=== PATIENT | female | born 1935 | race Caucasian/White ===

== ENCOUNTER 2017-02-01 21:26 | Emergency (ER) | payer MEDICARE, OTHER ==
[~2017-02-01] VITALS: Ht 165.1 cm; Wt 57.2 kg
[2017-02-01 21:32] VITALS: BP 142/68
== END 2017-02-01 21:58 | disposition home or self-care (01) ==
LOC: ER 21:27
DX: B02.9 Zoster without complications (principal); I10 Essential (primary) hypertension; E11.9 Type 2 diabetes mellitus without complications; D64.9 Anemia, unspecified
CPT/HCPCS: Z7610

== ENCOUNTER 2017-05-27 06:30 | Emergency (ER) | payer MEDICARE, BC ==
[~2017-05-27] VITALS: Ht 167.6 cm; Wt 63.5 kg
--- NOTE | 2017-05-27 06:30 | NUR ---
TO BED 9 AMBULATORY C/O FLU LIKE SYMPTOM X3 DAYS. PT AAOX4 NO ACUTE DISTRESS NOTED, RESP EVEN AND UNLABORED. PENDING ER MD ECKERT.
[2017-05-27] MEDS ORDERED: methylPREDNISolone SOD SUCC 125 MG/2ML VIAL IM STA (06:44)
[2017-05-27] MEDS ORDERED: IPRATROPIUM NEB FS 0.5 MG/2.5 ML AMPUL.NEB NEB ONE ×2 (07:00→08:30)
[2017-05-27] MEDS ORDERED: ALBUTEROL FS 2.5 MG/3 ML VIAL.NEB NEB ONE ×2 (07:00→08:30)
[2017-05-27] MEDS ORDERED: ALBUTEROL FS 2.5 MG/3 ML VIAL.NEB ONE ×2 (07:13→08:32)
[2017-05-27] MEDS ORDERED: IPRATROPIUM NEB FS 0.5 MG/2.5 ML AMPUL.NEB ONE ×2 (07:13→08:32)
--- NOTE | 2017-05-27 07:20 | NUR ---
RT AT BS FOR BREATHING TX.
[2017-05-27] MEDS ORDERED: predniSONE 20 MG TABLET PO STA (07:24)
[2017-05-27] MEDS ORDERED: predniSONE 20 MG TABLET ONE (07:29)
[2017-05-27 07:32] LABS: BASOPHILS % (AUTO) 0.4 % (0.0-2.0); EOSINOPHILS % (AUTO) 2.6 % (0.0-6.0); HEMATOCRIT 34 % (33-45); HEMOGLOBIN 11.4 g/dL (11.5-14.8); LYMPHOCYTES # (AUTO) 1.3 /CMM (0.8-4.8); LYMPHOCYTES % (AUTO) 29.7 % (20.0-44.0); MEAN CORPUSCULAR HGB CONC 34 g/dl (31.0-36.0); MEAN CORPUSCULAR VOLUME 81 fL (82-100); MONOCYTES # (AUTO) 0.4 /CMM (0.1-1.30); MONOCYTES % (AUTO) 8.3 % (2.0-12.0); NEUTROPHILS # (AUTO) 2.6 /CMM (1.8-8.9); PLATELET COUNT (AUTO) 158 /CMM (150-450); RDW COEFFICIENT OF VARIATION 15.1 (11.5-15.0); RED BLOOD CELL COUNT(AUTO) 4.14 MIL/uL (4.0-5.2); WHITE BLOOD COUNT (AUTO) 4.4 K/uL (4.3-11.0)
[2017-05-27 07:42] LABS: CARBON DIOXIDE 24 mmol/L (21-32); CHLORIDE 101 mmol/L (98-107); GLUCOSE 138 mg/dL (74-106); POTASSIUM 3.8 mmol/L (3.5-5.1); SODIUM SERUM 135 mmol/L (136-145); UREA NITROGEN, BLOOD 15 mg/dL (7-18)
[2017-05-27 07:46] LABS: CALCIUM, SERUM 8.6 mg/dL (8.5-10.1); CREATININE 0.9 mg/dL (0.6-1.3)
--- NOTE | 2017-05-27 08:05 | NUR ---
CALLED RT FOR SECOND BREATHING TX.
--- NOTE | 2017-05-27 09:21 | NUR ---
Patient discharged to home in stable condition. Written and verbal after care instructions given. Patient verbalizes understanding of instruction.
[2017-05-27 09:24] VITALS: BP 128/71
[2017-05-31] MEDS ORDERED: METH4TAB17 PO (11:43)
== END 2017-05-27 09:25 | disposition home or self-care (01) ==
LOC: ER 06:31
DX: J45.909 Unspecified asthma, uncomplicated (principal); B34.9 Viral infection, unspecified; D64.9 Anemia, unspecified; E11.9 Type 2 diabetes mellitus without complications; I10 Essential (primary) hypertension; K50.90 Crohn's disease, unspecified, without complications; M48.061 Spinal stenosis, lumbar region without neurogenic claudication
CPT/HCPCS: 36415; 71045-TC; 80048-TC; 83880; 85025-TC; A4606; J2930; Z7610

== ENCOUNTER 2017-05-29 07:34 | Inpatient (IN) | payer MEDICARE, BC ==
[~2017-05-29] VITALS: Ht 165.1 cm; Wt 59.0 kg
--- NOTE | 2017-05-29 07:47 | NUR ---
Cough, congestion, and wheezing x 2 days, unrelieved with HHN and prednisone. Placed on monitor. awaiiting md order.
[2017-05-29] MEDS ORDERED: Magnesium 1GM/D5W 100ML PREMIX 200 ML IV ONE (07:58)
[2017-05-29] MEDS ORDERED: IV NS 0.9% 1,000 ML IV ONE (07:58)
[2017-05-29] MEDS ORDERED: ALBUTEROL FS 2.5 MG/3 ML VIAL.NEB NEB ONE (08:00)
[2017-05-29] MEDS ORDERED: IPRATROPIUM NEB FS 0.5 MG/2.5 ML AMPUL.NEB NEB ONE (08:00)
[2017-05-29] MEDS ORDERED: predniSONE 20 MG TABLET PO ONE (08:00)
[2017-05-29] MEDS ORDERED: Magnesium 1GM/D5W 100ML PREMIX 100 ML IV ONE ×2 (08:13→09:15)
[2017-05-29] MEDS ORDERED: predniSONE 20 MG TABLET ONE ×2 (08:13→08:19)
[2017-05-29] MEDS ORDERED: IPRATROPIUM NEB FS 0.5 MG/2.5 ML AMPUL.NEB ONE (08:14)
[2017-05-29] MEDS ORDERED: ALBUTEROL FS 2.5 MG/3 ML VIAL.NEB ONE (08:14)
[2017-05-29 08:41] LABS: BASOPHILS % (AUTO) 0.3 % (0.0-2.0); HEMATOCRIT 36 % (33-45); LYMPHOCYTES # (AUTO) 1.7 /CMM (0.8-4.8); LYMPHOCYTES % (AUTO) 23.5 % (20.0-44.0); MEAN CORPUSCULAR HGB CONC 34 g/dl (31.0-36.0); MEAN CORPUSCULAR VOLUME 81 fL (82-100); MONOCYTES # (AUTO) 0.4 /CMM (0.1-1.30); MONOCYTES % (AUTO) 5.9 % (2.0-12.0); NEUTROPHILS # (AUTO) 4.8 /CMM (1.8-8.9); NEUTROPHILS % (AUTO) 69.3 % (43.0-81.0); PLATELET COUNT (AUTO) 218 /CMM (150-450); RDW COEFFICIENT OF VARIATION 14.6 (11.5-15.0); RED BLOOD CELL COUNT(AUTO) 4.44 MIL/uL (4.0-5.2)
[2017-05-29 08:48] LABS: CALCIUM, SERUM 9.2 mg/dL (8.5-10.1); CARBON DIOXIDE 28 mmol/L (21-32); CHLORIDE 100 mmol/L (98-107); CREATININE 0.8 mg/dL (0.6-1.3); GLUCOSE 89 mg/dL (74-106); POTASSIUM 3.9 mmol/L (3.5-5.1); SODIUM SERUM 137 mmol/L (136-145); UREA NITROGEN, BLOOD 20 mg/dL (7-18)
[2017-05-29 08:56] LABS: TROPONIN I 0.048 ng/mL (0.00-0.056)
[2017-05-29 08:58] LABS: ALANINE AMINOTRANSFERASE 33 U/L (12-78); ALBUMIN 3.5 g/dL (3.4-5.0); ALKALINE PHOSPHATASE 72 U/L (46-116); ASPARTATE AMINOTRANSFERASE 36 U/L (15-37); BILIRUBIN,DIRECT 0.2 mg/dL (0.0-0.2); BILIRUBIN,TOTAL 0.4 mg/dL (0.2-1.0); TOTAL PROTEIN, SERUM 7.3 g/dL (6.4-8.2)
--- NOTE | 2017-05-29 09:13 | NUR ---
Paged Dr. Lomeli for admission. Office staff states [facility] will be covering today.
--- NOTE | 2017-05-29 09:14 | NUR ---
Paged Dr Siddiqui for admission
[2017-05-29] MEDS ORDERED: ASPI-1169 PO (09:26)
[2017-05-29] MEDS ORDERED: LOSA50TA21 PO (09:26)
[2017-05-29] MEDS ORDERED: SIMV20TA6 PO (09:26)
[2017-05-29] MEDS ORDERED: ALPR0.255 PO (09:26)
[2017-05-29] MEDS ORDERED: ALBU18HF2 IH (09:26)
[2017-05-29] MEDS ORDERED: FAMO20TA8 PO (09:26)
[2017-05-29] MEDS ORDERED: CITA20TA19 PO (09:27)
--- NOTE | 2017-05-29 10:35 | NUR ---
TELE/RN OPENING NOTE PATIENT IS RECEIVED ON A GURNEY. ASSISTED TO BED. PATIENT ALERT AND ORIENTED X4. DENIES SOB AT THIS TIME. RESPIRATION REGULAR AND UNLABORED. OXYGEN SATURATION IN ROOM AIR AT 98%. PATIENT NOTED WITH NON-PRODUCTIVE COUGH. AFEBRILE. HOB ELEVATED TO GOOD LUNG EXPANSION. LAC G 18 PATENT AND SALINE LOCKED. PATIENT REFUSED SKIN ASSESSMENT AT THIS TIME. WILL CONTINUE TO EDUCATE AND ENCOURAGE TO AGREE FOR SKIN ASSESSMENT. BED LOW AND LOCKED. SIDE RAILS UP X2. CALL LIGHT WITHIN REACH. WILL CONTINUE TO MONITOR.
--- NOTE | 2017-05-29 10:40 | NUR ---
GAVE REPORT TO FREIDA SHELTON DX REACTIVE AIRWAY DR AGUAYO ADMITTING
[2017-05-29 10:45] VITALS: BP 146/79
--- NOTE | 2017-05-29 12:06 | NUR ---
TELE/RN NOTE PATIENT AGREED FOR SKIN ASSESSMENT AND SKIN ASSESSMENT FLOWSHEET IS UPDATED
[2017-05-29] MEDS ORDERED: Z GUARD REMEDY 2 OZ OINT TP PRN (12:30)
[2017-05-29] MEDS ORDERED: ACETAMINOPHEN 325 MG TABLET PO PRN (12:30)
[2017-05-29] MEDS ORDERED: MAGNESIUM HYDROXIDE 30 ML UDC PO PRN (12:30)
[2017-05-29] MEDS ORDERED: ALBUTEROL FS 2.5 MG/3 ML VIAL.NEB NEB PRN (12:30)
[2017-05-29] MEDS ORDERED: ZOLPIDEM TARTRATE 5 MG TABLET PO PRN (12:30)
[2017-05-29] MEDS ORDERED: HYDROCODONE/APAP 5/325MG 1 EACH TABLET PO PRN (12:30)
[2017-05-29] MEDS ORDERED: ONDANSETRON HCL/PF 4 MG/2 ML VIAL IVP PRN (12:30)
[2017-05-29] MEDS ORDERED: MAG HYDROX/AL HYDROX/SIMETH 30 ML UDC PO PRN (12:30)
[2017-05-29] MEDS: methylPREDNISolone SOD SUCC 40 MG/ML VIAL IV SCH ×2 (12:45→16:44)
[2017-05-29] MEDS: ALPRAZOLAM 0.25 MG TABLET PO PRN ×2 (14:14→23:19)
[2017-05-29] MEDS: ALBUTEROL FS 2.5 MG/3 ML VIAL.NEB NEB SCH ×2 (14:29→20:58)
[2017-05-29] MEDS: IV NS 0.9% 1,000 ML IV PRN (15:38)
--- NOTE | 2017-05-29 16:15 | NUR ---
TELE/RN NOTE RECEIVED TEL NEW ORDERS FROM DR AGUAYO. ALL ORDERS VERIFIED. NOTED AND CARRIED OUT.
[2017-05-29] MEDS ORDERED: LOSARTAN POTASSIUM 50 MG TABLET PO ONE (16:30)
[2017-05-29] MEDS ORDERED: LORATADINE 10 MG TABLET PO PRN (16:30)
[2017-05-29] MEDS: SIMVASTATIN 20 MG TABLET PO SCH (17:45)
--- NOTE | 2017-05-29 18:17 | NUR ---
TELE/RN CLOSING NOTE PATIENT ALERT AND ORIENTED X4. DENIES SOB, DENIES PAIN AT THIS TIME. RESPIRATION REGULAR AND UNLABORED. PATIENT IN NO APPARENT DISTRESS. OXYGEN SATURATION IN ROOM AIR AT 98%. PATIENT ON MONITORING AND READING SR AT 84. LAC G 18 PATENT AND IVF INFUSING WITH NO S/S INFILTRATION. BED LOW AND LOCKED. SIDE RAILS UP X2. VERBAL CUES PROVIDED TO KEEP SAFETY AWARENESS HIGH. CALL LIGHT WITHIN REACH.WILL ENDORSE TO TUMBLING MACHINE OPERATOR.
--- NOTE | 2017-05-29 19:30 | NUR ---
TELE/RN RECEIVE PATIENT AWAKE, ALERT, ORIENTED, COMFORTABLE, NO C/O PAIN, NO DISTRESS NOTED, CALL LIGHT IN REACH. WILL MONITOR.
[2017-05-29 20:00] VITALS: BP 134/73
--- NOTE | 2017-05-29 23:21 | NUR ---
TELE/RN PER PATIENT SHE IS UNABLE TO SLEEP DESPITE THE AMBIEN AND IS FEELING ANXIOUS, XANAX 0.25 MG PO WAS GIVEN ORDERED. WILL CONTINUE TO MONITOR.
[2017-05-30] VITALS: BP 141/82
--- NOTE | 2017-05-30 00:41 | NUR ---
TELE/RN PATIENT IS SLEEPING AT THIS TIME, APPEAR COMFORTABLE, BREATHING EVEN AND UNLABORED, CALL LIGHT IN REACH, WILL CONTINUE TO MONITOR.
[2017-05-30] MEDS: ALBUTEROL FS 2.5 MG/3 ML VIAL.NEB NEB SCH ×4 (01:25→19:24)
--- NOTE | 2017-05-30 01:30 | NUR ---
TELE/RN PATIENT IS UPSET THAT SHE WAS AWAKENED FOR BREATHING TREATMENT AND REQUESTS NOT TO BE AWAKENED WHEN SLEEPING. INFORMED RT.
--- NOTE | 2017-05-30 03:10 | NUR ---
TELE/RN PER LUIS ANTONIO MICHELE, PATIENT REQUESTS NOT TO BE AWAKENED WHEN SLEEPING.
--- NOTE | 2017-05-30 06:05 | NUR ---
TELE/RN PATIENT IS SLEEPING AT THIS TIME, AROUSABLE, BREATHING EVEN AND UNLABORED, ALL NEEDS ATTENDED AT THIS TIME, WILL CONTINUE TO MONITOR.
[2017-05-30 06:33] LABS: HEMATOCRIT 32 % (33-45); LYMPHOCYTES # (AUTO) 0.7 /CMM (0.8-4.8); LYMPHOCYTES % (AUTO) 6.8 % (20.0-44.0); MEAN CORPUSCULAR HGB CONC 34 g/dl (31.0-36.0); MEAN CORPUSCULAR VOLUME 81 fL (82-100); MONOCYTES # (AUTO) 0.6 /CMM (0.1-1.30); MONOCYTES % (AUTO) 5.4 % (2.0-12.0); NEUTROPHILS # (AUTO) 9.3 /CMM (1.8-8.9); NEUTROPHILS % (AUTO) 87.8 % (43.0-81.0); PLATELET COUNT (AUTO) 211 /CMM (150-450); RDW COEFFICIENT OF VARIATION 15.2 (11.5-15.0); RED BLOOD CELL COUNT(AUTO) 3.96 MIL/uL (4.0-5.2); WHITE BLOOD COUNT (AUTO) 10.6 K/uL (4.3-11.0)
[2017-05-30 06:51] LABS: CALCIUM, SERUM 8.7 mg/dL (8.5-10.1); CARBON DIOXIDE 28 mmol/L (21-32); CHLORIDE 103 mmol/L (98-107); GLUCOSE 204 mg/dL (74-106); MAGNESIUM 1.9 mg/dL (1.8-2.4); PHOSPHORUS 2.7 mg/dL (2.5-4.9); POTASSIUM 3.9 mmol/L (3.5-5.1); SODIUM SERUM 137 mmol/L (136-145); UREA NITROGEN, BLOOD 17 mg/dL (7-18)
[2017-05-30 08:06] VITALS: BP 151/81
[2017-05-30] MEDS: FAMOTIDINE (20 MG) 20 MG TABLET PO SCH (08:26)
[2017-05-30] MEDS: ASPIRIN 81 MG TAB.CHEW PO SCH (08:26)
[2017-05-30] MEDS: LOSARTAN POTASSIUM 50 MG TABLET PO SCH (08:27)
[2017-05-30] MEDS: CITALOPRAM HYDROBROMIDE 20 MG TABLET PO SCH (08:27)
[2017-05-30] MEDS: methylPREDNISolone SOD SUCC 40 MG/ML VIAL IV SCH ×3 (08:28→17:31)
[2017-05-30 09:01] LABS: ABG BASE EXCESS -0.8 mmol/L; ABG OXYGEN SATURATION 95.9 % (92.0-98.5); ABG PCO2 29.6 mmHg (35.0-45.0); ABG PH 7.485 (7.350-7.450); AaDO2 31.3 mmHg; MetHb 0.3 % (0.0-1.5); O2Hb 95.6 % (94.0-97.0); SITE, ABG Right Radial; VENT MODE, BG RA
[2017-05-30] MEDS: ALPRAZOLAM 0.25 MG TABLET PO PRN (12:18)
--- NOTE | 2017-05-30 12:25 | NUR ---
RN NOTES: PATIENT STATES BEING ANXIOUS. ENCOURAGED TO EXPRESS EMOTIONS. NONLABORED BREATHING ON ROOM AIR. XANAX GIVEN PER ORDERS
[2017-05-30] MEDS: IV NS 0.9% 1,000 ML IV PRN (13:14)
--- NOTE | 2017-05-30 13:25 | NUR ---
RN NOTES: PATIENT STATES "FEELING BETTER." AFTER XANAX NONLABORED BREATHING NOTED ON ROOM AIR. NO FACIAL GRIMACING
--- NOTE | 2017-05-30 14:24 | NUR ---
RN NOTES: PATIENT STATES HAVING A HEADACHE , STATING " ONLY TYLENOL WILL HELP ME" PATIENT PERRLA. TYLENOL ADMINISTERED PER ORDERS
--- NOTE | 2017-05-30 14:30 | NUR ---
RN NOTES: PER DR AGUAYO, XANAX 1 MG AT BEDTIME
--- NOTE | 2017-05-30 15:24 | NUR ---
RN NOTES: PATIENT STATES THAT HEADACHE IS ALLEVIATED AFTER TYLENOL ADMINISTRATION
--- NOTE | 2017-05-30 16:20 | NUR ---
RN NOTES: PATIENT COMPLAINING OF CONSTIPATION. MILK OF MAGNESIA ADMINISTERED PER ORDERS
--- NOTE | 2017-05-30 16:27 | NUR ---
RN NOTES: PATIENT COMPLAINING OF BURNING UPON URINATION. URINE COLLECTED AND TO BE PICKED UP BY LAB
[2017-05-30 16:44] VITALS: BP 134/74
[2017-05-30 17:24] LABS: APPEARANCE,URINE CLEAR (CLEAR); BILIRUBIN,URINE NEGATIVE (NEGATIVE); BLOOD, URINE TRACE-INTA Ery/uL (NEGATIVE); COLOR,URINE YELLOW (YELLOW); KETONES,URINE NEGATIVE (NEGATIVE); LEUKOCYTE ESTERASE ,URINE NEGATIVE (NEGATIVE); NITRITE, URINE NEGATIVE (NEGATIVE); PROTEIN,URINE 2+ mg/dl (NEGATIVE); UGLUCOSE TRACE mg/dL (NEGATIVE); UROBILINOGEN,URINE 0.2 EU/dL (0.2)
[2017-05-30] MEDS: SIMVASTATIN 20 MG TABLET PO SCH (17:30)
--- NOTE | 2017-05-30 17:36 | NUR ---
RN NOTES: PER DR AGUAYO, MILD SLIDING SCALE. AWARE THAT PATIENT IS REFUSING INSULIN. BENEFITS AND RISKS EXPLAINED TO PATIENT
[2017-05-30] MEDS ORDERED: DEXTROSE 50%-WATER 50 ML DISP.SYRIN IV PRN (18:00)
[2017-05-30] MEDS ORDERED: INSULIN REGULAR, HUMAN 100 UNIT/ML 3 ML VIAL SQ PRN (18:00)
[2017-05-30 19:05] LABS: BACTERIA,URINE None seen /HPF (None Seen); RBC,URINE 0-2 /HPF (0-2); SQUAMOUS EPITHELIAL CELL,UR Few /HPF (None Seen); WBC,URINE 0-2 /HPF (0-3)
--- NOTE | 2017-05-30 19:30 | NUR ---
RN NOTES RECEIVED PATIENT IN BED AWAKE, AO X 3, ABLE TO MAKE NEEDS KNOWN. NO ACUTE DISTRESS NOTED. DENIES ANY PAIN AT THIS TIME. IV SITE PATENT, INTACT; IVF INFUSING ORDERED. NO SYMPTOMS OF HYPER/HYPOGLYCEMIA. SAFETY REMINDERS GIVEN. ON LOW BED WITH BILATERAL UPPER SIDE RAILS UP. CALL JARQUIN WITHIN EASY REACH. WILL CONTINUE TO MONITOR.
--- NOTE | 2017-05-30 19:41 | NUR ---
RN NOTES: PATIENT RESTING IN BED. PATIENT AOX4. NONLABORED BREATHING NOTED ON ROOM AIR. NO SIGNS OF DISTRESS NOTED. DENYING PAIN AT THE MOMENT. IV SITE PATENT AND INTACT ON LEFT AC. IV FLUIDS RUNNING PER ORDERS. BED IN LOWEST LOCKED POSITION. CALL LIGHT WITHIN REACH. EDUCATED ON INSULIN, AND BLOOD SUGAR MONITORING. ENDORSED TO NEXT SHIFT
[2017-05-30 20:00] VITALS: BP 137/69
[2017-05-30] MEDS: BLOOD SUGAR DIAGNOSTIC 1 EACH STRIP IN SCH (21:21)
[2017-05-30] MEDS ORDERED: ALPRAZOLAM 1 MG TABLET PO SCH (22:00)
[2017-05-31] MEDS: ALBUTEROL FS 2.5 MG/3 ML VIAL.NEB NEB SCH ×3 (01:30→12:42)
--- NOTE | 2017-05-31 06:30 | NUR ---
RN NOTES PATIENT ASLEEP, EASILY AROUSABLE. RESPIRATIONS EVEN. NO SIGNS OF PAIN NOTED. DUE MEDS GIVEN WITH NO ASE NOTED. NEEDS ATTENDED. SAFETY PRECAUTIONS AND COMFORT MEASURES IN PLACE. WILL GIVE REPORT TO DAY SHIFT FOR CONTINUITY OF CARE.
--- NOTE | 2017-05-31 07:10 | NUR ---
RN INITIAL NOTES: PATIENT RESTING IN BED. PATIENT AOX4. NONLABORED BREATHING NOTED ON ROOM AIR. NO SIGNS OF DISTRESS NOTED. DENYING PAIN AT THE MOMENT. IV SITE PATENT AND INTACT ON RIGHT ARM, GAUGE #[id number]. BED IN LOWEST LOCKED POSITION. CALL LIGHT WITHIN REACH. WILL CONTINUE TO MONITOR
[2017-05-31] MEDS: BLOOD SUGAR DIAGNOSTIC 1 EACH STRIP IN SCH ×2 (07:12→12:27)
[2017-05-31 08:00] VITALS: BP 154/85
[2017-05-31] MEDS: CITALOPRAM HYDROBROMIDE 20 MG TABLET PO SCH (08:20)
[2017-05-31 08:21] VITALS: BP 154/85
[2017-05-31] MEDS: FAMOTIDINE (20 MG) 20 MG TABLET PO SCH (08:21)
[2017-05-31] MEDS: LOSARTAN POTASSIUM 50 MG TABLET PO SCH (08:21)
[2017-05-31] MEDS: ASPIRIN 81 MG TAB.CHEW PO SCH (08:21)
[2017-05-31] MEDS: methylPREDNISolone SOD SUCC 40 MG/ML VIAL IV SCH ×2 (08:22→12:25)
[2017-05-31] MEDS ORDERED: METH4TAB17 PO (11:43)
--- NOTE | 2017-05-31 13:00 | NUR ---
RN NOTES: PATIENT DISCHARGED HOME PER DR AGUAYO'S ORDERS. PATIENT AOX4. NONLABORED BREATHING NOTED ON ROOM AIR AND DENYING SOB. PATIENT STABLE DURING SHIFT. IV LINE REMOVED BEFORE DISCHARGE. NO SKIN CHANGES NOTED. REFUSED SKIN PIC. ALL VALUABLES GIVEN TO PATIENT. PATIENT EDUCATED ABOUT EXISTCARE AND MEDICATIONS. PRESCRIPTION GIVEN TO PATIENT. PATIENT LEFT WITH DAUGHTER STABLE. ACCOMPANIED TO CAR BY STAFF
== END 2017-05-31 13:44 | disposition home or self-care (01) | DRG 202 ==
LOC: ER 07:36 → TELE 10:15 → MED 05-30 08:35
PROVIDERS: ADMIT Internal Medicine; ATTEND Internal Medicine
DX: J20.8 Acute bronchitis due to other specified organisms (principal); K50.90 Crohn's disease, unspecified, without complications; E11.9 Type 2 diabetes mellitus without complications; J45.909 Unspecified asthma, uncomplicated; I10 Essential (primary) hypertension; M48.061 Spinal stenosis, lumbar region without neurogenic claudication; K21.9 Gastro-esophageal reflux disease without esophagitis; E86.0 Dehydration; Z79.82 Long term (current) use of aspirin; Z79.899 Other long term (current) drug therapy; G43.909 Migraine, unspecified, not intractable, without status migrainosus; M19.90 Unspecified osteoarthritis, unspecified site; Z79.84 Long term (current) use of oral hypoglycemic drugs; Z87.891 Personal history of nicotine dependence; F41.9 Anxiety disorder, unspecified; E78.5 Hyperlipidemia, unspecified
CPT/HCPCS: 36415; 36600; 71045-TC; 80048-TC; 80076-TC; 81000-TC; 82962-TC; 83605-TC; 83735-TC; 83880; 84100-TC; 84484-TC; 85025-TC; 87040-TC; 87081-TC; 87086-TC; 87400; A4606; J1815; J2920; J3475; J7030; Z7610

== ENCOUNTER 2017-09-23 10:24 | Emergency (ER) | payer BC, MEDICARE ==
[~2017-09-23] VITALS: Ht 157.5 cm; Wt 58.7 kg
[~2017-09-23 10:24] MED LIST: ALBU18HF2 IH; ALPR0.255 PO; ASPI-1169 PO; CITA20TA19 PO; FAMO20TA8 PO; LOSA50TA21 PO; METH4TAB17 PO; SIMV20TA6 PO
--- NOTE | 2017-09-23 10:35 | NUR ---
PRESENTS TO ER C/O R LOWER BACK PAIN, RADIATING DOWN R LEG X 1 WEEK, UNCONTROLLED WITH NORCO. A/OX 4, BREATHING EVEN AND UNLABORED. NO SOB, NAD, VITALS STABLE. SAFETY AND COMFORT MEASURES IN PLACE. AWAITING MD ORDERS.
[2017-09-23] MEDS ORDERED: KETOROLAC TROMETHAMINE INJ 30 MG/ML VIAL ONE (10:45)
[2017-09-23] MEDS ORDERED: METHOCARBAMOL (500MG) 500 MG TABLET ONE (10:45)
--- NOTE | 2017-09-23 10:54 | NUR ---
medicated patient per md orders.
[2017-09-23] MEDS ORDERED: KETOROLAC TROMETHAMINE INJ 30 MG/ML VIAL IM ONE (11:00)
[2017-09-23] MEDS ORDERED: METHOCARBAMOL (500MG) 500 MG TABLET PO ONE (11:00)
[2017-09-23 11:19] VITALS: BP 146/72
--- NOTE | 2017-09-23 11:20 | NUR ---
Patient discharged to home in stable condition. Written and verbal after care instructions given. Patient verbalizes understanding of instruction.
== END 2017-09-23 11:20 | disposition home or self-care (01) ==
LOC: ER 10:34
DX: M54.41 Lumbago with sciatica, right side (principal); G89.29 Other chronic pain; I10 Essential (primary) hypertension; E11.9 Type 2 diabetes mellitus without complications; Z79.82 Long term (current) use of aspirin; F17.200 Nicotine dependence, unspecified, uncomplicated
CPT/HCPCS: A4606; J1885; Z7610

== ENCOUNTER 2017-10-01 01:47 | Emergency (ER) | payer BC ==
[~2017-10-01] VITALS: Ht 165.1 cm; Wt 58.1 kg
--- NOTE | 2017-10-01 02:10 | NUR ---
PT C/O BURNING SENSATION IN HER THROAT AND BLE BURNING SENSATION. PT APPEARS ANXIOUS.
[2017-10-01] MEDS ORDERED: MORPHINE SULFATE INJ 2 MG/ML DISP.SYRIN IM ONE (02:30)
[2017-10-01] MEDS ORDERED: MORPHINE SULFATE INJ 4 MG/ML DISP.SYRIN ONE (02:37)
[2017-10-01] MEDS ORDERED: MAG HYDROX/AL HYDROX/SIMETH 30 ML UDC ONE (02:46)
[2017-10-01] MEDS ORDERED: LIDOCAINE VISCOUS 2% UD 15 ML UDC ONE (02:46)
[2017-10-01] MEDS ORDERED: ONDANSETRON 4 MG TAB.RAPDIS ONE (02:47)
--- NOTE | 2017-10-01 02:50 | NUR ---
PT REC'D ALL MEDICATION ORDERED.
[2017-10-01] MEDS ORDERED: LIDOCAINE VISCOUS 2% UD 15 ML UDC MM ONE (03:00)
[2017-10-01] MEDS ORDERED: MAG HYDROX/AL HYDROX/SIMETH 30 ML UDC PO ONE (03:00)
[2017-10-01] MEDS ORDERED: ONDANSETRON 4 MG TAB.RAPDIS SL ONE (03:00)
--- NOTE | 2017-10-01 03:08 | NUR ---
PT RETURNED FROM CT VIA WC.
--- NOTE | 2017-10-01 04:40 | NUR ---
Patient discharged to home in stable condition. Written and verbal after care instructions given. Patient verbalizes understanding of instruction AND RX. PT AMBULATED TO OUT TO THE LOBBY WITH A STEADY GAIT. VSS.
[2017-10-01 04:48] VITALS: BP 138/87
== END 2017-10-01 04:50 | disposition home or self-care (01) ==
LOC: ER 01:49
DX: K21.9 Gastro-esophageal reflux disease without esophagitis (principal); M54.30 Sciatica, unspecified side; I10 Essential (primary) hypertension; E11.9 Type 2 diabetes mellitus without complications; K50.90 Crohn's disease, unspecified, without complications; M48.061 Spinal stenosis, lumbar region without neurogenic claudication; D64.9 Anemia, unspecified; F17.200 Nicotine dependence, unspecified, uncomplicated; Z60.2 Problems related to living alone; Z79.82 Long term (current) use of aspirin; Z79.899 Other long term (current) drug therapy
CPT/HCPCS: 72131; 96372; 99284; A4606; J2270; Q0162; Z7610

== ENCOUNTER 2017-10-06 23:45 | Emergency (ER) | payer BC ==
[~2017-10-06] VITALS: Ht 162.6 cm; Wt 54.4 kg
[2017-10-06 23:56] VITALS: BP 143/76
[2017-10-07] MEDS ORDERED: HYDROMORPHONE HCL 2 MG TABLET ONE (00:16)
[2017-10-07] MEDS ORDERED: ONDANSETRON 4 MG TAB.RAPDIS ONE (00:16)
[2017-10-07] MEDS ORDERED: ALPRAZOLAM 0.5 MG TABLET ONE (00:17)
[2017-10-07] MEDS ORDERED: ALPRAZOLAM 0.5 MG TABLET PO ONE (00:30)
[2017-10-07] MEDS ORDERED: ONDANSETRON 4 MG TAB.RAPDIS SL ONE (00:30)
[2017-10-07] MEDS ORDERED: HYDROMORPHONE HCL 2 MG TABLET PO PRN (00:30)
== END 2017-10-07 01:28 | disposition home or self-care (01) ==
LOC: ER 23:50
DX: G89.29 Other chronic pain (principal); M54.40 Lumbago with sciatica, unspecified side; M48.061 Spinal stenosis, lumbar region without neurogenic claudication; K50.90 Crohn's disease, unspecified, without complications; D64.9 Anemia, unspecified; F17.200 Nicotine dependence, unspecified, uncomplicated; I10 Essential (primary) hypertension; E11.9 Type 2 diabetes mellitus without complications; Z60.2 Problems related to living alone; Z79.82 Long term (current) use of aspirin
CPT/HCPCS: 99284; A4606; Q0162; Z7610

== ENCOUNTER 2017-10-11 04:21 | Inpatient (IN) | payer BC, OTHER ==
[~2017-10-11] VITALS: Ht 162.6 cm; Wt 50.8 kg
--- NOTE | 2017-10-11 04:40 | NUR ---
TO BED 6 AMBULATROY C/O EPIGASTRIC PAIN X 1 1/2 HRS, CONSTIPATION X6 DAYS. PT AAOX4 NO ACUTE DISTRESS NOTED, RESP EVEN AND UNLABORED. ER AT BEDSIDE TO [facility] [place] ORDERS RECEIVED. WILL CARRY OUT ORDERS. Addendum: 10/11/17 at 0525 by ECABALLERO ORAL CONTRAST ADMINISTERED PER SETH DONIS ORDER.
[2017-10-11] MEDS ORDERED: MAGNESIUM CITRATE 296 ML BOTTLE ONE (04:57)
[2017-10-11] MEDS ORDERED: NA PHOS,M-B/NA PHOS,DI-BA 1 EA ENEMA RC ONE ×2 (04:58→05:00)
[2017-10-11] MEDS ORDERED: MAGNESIUM CITRATE 296 ML BOTTLE PO ONE (05:00)
--- NOTE | 2017-10-11 05:10 | NUR ---
STARTED SL 18G TO [facility], BLOOD DRAWN AND SENT TO LAB.
[2017-10-11 05:21] LABS: BASOPHILS # (AUTO) 0.1 /CMM (0.0-0.2); BASOPHILS % (AUTO) 1.1 % (0.0-2.0); EOSINOPHILS % (AUTO) 1.2 % (0.0-6.0); HEMATOCRIT 39 % (33-45); HEMOGLOBIN 12.8 g/dL (11.5-14.8); LYMPHOCYTES # (AUTO) 1.2 /CMM (0.8-4.8); LYMPHOCYTES % (AUTO) 20.3 % (20.0-44.0); MEAN CORPUSCULAR HEMOGLOBIN 28 PG (26.0-33.0); MEAN CORPUSCULAR HGB CONC 33 g/dl (31.0-36.0); MEAN CORPUSCULAR VOLUME 85 fL (82-100); MONOCYTES # (AUTO) 0.5 /CMM (0.1-1.30); MONOCYTES % (AUTO) 8.1 % (2.0-12.0); NEUTROPHILS # (AUTO) 4.1 /CMM (1.8-8.9); NEUTROPHILS % (AUTO) 69.3 % (43.0-81.0); PLATELET COUNT (AUTO) 338 /CMM (150-450); RDW COEFFICIENT OF VARIATION 15.3 (11.5-15.0); RED BLOOD CELL COUNT(AUTO) 4.55 MIL/uL (4.0-5.2); WHITE BLOOD COUNT (AUTO) 5.9 K/uL (4.3-11.0)
--- NOTE | 2017-10-11 05:23 | NUR ---
PT MEDICATED ORDERED. PT DAUGHTER AT BEDSIDE.
[2017-10-11] MEDS ORDERED: IV NS 0.9% 500 ML BAG IV ONE (05:30)
[2017-10-11 05:31] LABS: CALCIUM, SERUM 9.4 mg/dL (8.5-10.1); CARBON DIOXIDE 28 mmol/L (21-32); CHLORIDE 93 mmol/L (98-107); GLUCOSE 148 mg/dL (74-106); POTASSIUM 4.4 mmol/L (3.5-5.1); SODIUM SERUM 131 mmol/L (136-145); UREA NITROGEN, BLOOD 13 mg/dL (7-18)
--- NOTE | 2017-10-11 05:36 | NUR ---
PT C/O NAUSEA. ER MADE AWARE WITH ORDERS RECIEVED. WILL CARRY OUT ORDERS.
[2017-10-11 05:37] LABS: ALANINE AMINOTRANSFERASE 28 U/L (12-78); ALBUMIN 3.8 g/dL (3.4-5.0); ALKALINE PHOSPHATASE 89 U/L (46-116); ASPARTATE AMINOTRANSFERASE 15 U/L (15-37); BILIRUBIN,DIRECT 0.1 mg/dL (0.0-0.2); BILIRUBIN,TOTAL 0.5 mg/dL (0.2-1.0); LIPASE 126 U/L (73-393); TOTAL PROTEIN, SERUM 7.4 g/dL (6.4-8.2)
[2017-10-11] MEDS ORDERED: ONDANSETRON HCL/PF 4 MG/2 ML VIAL ONE ×2 (05:43→06:03)
[2017-10-11] MEDS ORDERED: ONDANSETRON 4 MG TAB.RAPDIS SL ONE (06:00)
[2017-10-11] MEDS ORDERED: ONDANSETRON HCL/PF - ER 4 MG/2 ML VIAL IV ONE ×2 (06:00→06:30)
--- NOTE | 2017-10-11 06:00 | NUR ---
pt still c/o nausea. er made aware.
--- NOTE | 2017-10-11 06:03 | NUR ---
RN AT BEDSIDE TO MEDICATE PT.
[2017-10-11] MEDS ORDERED: QUETIAPINE FUMARATE 25 MG TABLET PO PRN (07:00)
--- NOTE | 2017-10-11 07:03 | NUR ---
PT TO CT
--- NOTE | 2017-10-11 07:14 | NUR ---
PATIENT CAME BACK FROM CT, STABLE CONDITION, WILL MONITOR ACCORDINGLY
--- NOTE | 2017-10-11 08:45 | NUR ---
PATIENT TRANSFERRED AT [place] [id number] IN STABLE CONDITION, ACCOMPANIED BY DHAVAL GRACE.
--- NOTE | 2017-10-11 08:45 | NUR ---
PER PATIENT, SHE CALLED HER DAUGHTER AND DAUGHTER AGREED PATIENT TO BE ADMITTED AT [facility].
[2017-10-11] MEDS ORDERED: HYDR-3980 PO (09:04)
[2017-10-11] MEDS ORDERED: DULO30CA51 PO (09:04)
[2017-10-11] MEDS ORDERED: MULT-24 PO (09:04)
[2017-10-11] MEDS ORDERED: EPOE1VIA15 SQ (09:05)
[2017-10-11 09:30] VITALS: BP 141/83
[2017-10-11] MEDS ORDERED: ACETAMINOPHEN 325 MG TABLET PO PRN (09:30)
[2017-10-11] MEDS ORDERED: MAGNESIUM HYDROXIDE 30 ML UDC PO PRN (09:30)
[2017-10-11] MEDS ORDERED: MAG HYDROX/AL HYDROX/SIMETH 30 ML UDC PO PRN (09:30)
[2017-10-11] MEDS ORDERED: LORAZEPAM 0.5 MG TABLET PO PRN (09:30)
[2017-10-11] MEDS ORDERED: TEMAZEPAM 7.5 MG CAPSULE PO PRN (09:30)
[2017-10-11] MEDS: DIVALPROEX SODIUM 125 MG TABLET.DR PO SCH ×2 (11:47→21:05)
[2017-10-11] MEDS: ALPRAZOLAM 0.25 MG TABLET PO PRN (11:47)
--- NOTE | 2017-10-11 11:57 | NUR ---
ADMITTED VOLUNTARY AN 82 YEARS FEMALE DUE TO DEPRESSION AND SUICIDAL WITH NO SPECIFIC PLAN. DENIED BEING HOMICIDAL. PT. CAME FROM ER, ALERT/ ORIENTED X3, AMBULATORY WITH WALKER, CONTINENT AND WELL GROOMED. PT. WAS ANXIOUS AND TEARFUL ON THE ASSESSMENT. ARRIVED IN THE UNIT VIA HOSPITAL BED AND BROUGHT IN BY ER STAFF WITH BELONGINGS. V/S TAKEN, CONTRABAND DONE AND SKIN ASSESSMENT DONE AND PICTURE TAKEN AND PT. SIGNED THE ADMISSION PAPERS. DR. ZAMARRIPA MADE AWARE OF THE ADMISSION AND SEEN PT. DR. OWEN IN THE CYAN[employer] POT HARDENER IN CHARGE WAS NOTIFIED. NEEDS ATTENDED, ORIENTED TO THE UNIT AND MAY USE HER IPOD WITH STAFF SUPERVISION. WILL CONTINUE TO MONITOR FOR SAFETY. Addendum: 10/11/17 at 1338 by ANT SEN RN DAUGHTER IS AWARE OF THE ADMISSION AND CAME TO VISIT.
[2017-10-11] MEDS ORDERED: EPOETIN ALFA (40,000 UNIT) 40,000 UNIT/ML VIAL SQ PRN (14:30)
[2017-10-11] MEDS: HYDROCODONE/APAP 10/325MG 1 EA TABLET PO PRN ×2 (14:54→22:46)
[2017-10-11 16:00] VITALS: BP 149/77
[2017-10-11] MEDS: DULOXETINE HCL 30 MG CAPSULE.DR PO SCH (17:10)
[2017-10-11] MEDS: SIMVASTATIN 20 MG TABLET PO SCH (17:10)
--- NOTE | 2017-10-11 18:02 | NUR ---
DR. OWEN CAME AND SEEN PT.
[2017-10-11] MEDS ORDERED: ALBUTEROL FS 2.5 MG/0.5 ML VIAL.NEB NEB PRN (19:30)
[2017-10-11 20:00] VITALS: BP 149/77
[2017-10-12] MEDS: HYDROCODONE/APAP 10/325MG 1 EA TABLET PO PRN ×2 (04:59→15:01)
[2017-10-12 07:42] LABS: ALANINE AMINOTRANSFERASE 25 U/L (12-78); ALBUMIN 3.1 g/dL (3.4-5.0); ALKALINE PHOSPHATASE 77 U/L (46-116); ASPARTATE AMINOTRANSFERASE 15 U/L (15-37); BILIRUBIN,TOTAL 0.4 mg/dL (0.2-1.0); CALCIUM, SERUM 8.8 mg/dL (8.5-10.1); CARBON DIOXIDE 32 mmol/L (21-32); CHLORIDE 94 mmol/L (98-107); CREATININE 0.9 mg/dL (0.6-1.3); GLUCOSE 137 mg/dL (74-106); POTASSIUM 5.1 mmol/L (3.5-5.1); SODIUM SERUM 129 mmol/L (136-145); TOTAL PROTEIN, SERUM 6.2 g/dL (6.4-8.2); UREA NITROGEN, BLOOD 13 mg/dL (7-18)
[2017-10-12 08:05] LABS: THYROID STIMULATING HORMONE 1.733 uIU/mL (0.358-3.74)
[2017-10-12 08:41] VITALS: BP 126/58
[2017-10-12] MEDS: FAMOTIDINE (20 MG) 20 MG TABLET PO SCH (09:04)
[2017-10-12] MEDS: LOSARTAN POTASSIUM 50 MG TABLET PO SCH (09:04)
[2017-10-12] MEDS: ASPIRIN 81 MG TAB.CHEW PO SCH (09:04)
[2017-10-12] MEDS: DIVALPROEX SODIUM 125 MG TABLET.DR PO SCH (09:05)
[2017-10-12] MEDS: MULTIVITAMINS,THERAGRAN 1 UDTAB TABLET PO SCH (09:05)
[2017-10-12] MEDS: ALPRAZOLAM 0.25 MG TABLET PO PRN ×2 (11:53→21:32)
--- NOTE | 2017-10-12 15:32 | NUR ---
RN NOTE: SODIUM AT 129. NOTIFIED DR TAMEZ
[2017-10-12 16:00] VITALS: BP 128/60
[2017-10-12] MEDS: busPIRone 5 MG TABLET PO SCH (18:01)
[2017-10-12] MEDS: DULOXETINE HCL 30 MG CAPSULE.DR PO SCH (18:01)
[2017-10-12] MEDS: SIMVASTATIN 20 MG TABLET PO SCH (18:02)
--- NOTE | 2017-10-12 20:00 | NUR ---
GPS RN NOTE: RECEIVED PATIENT IN ROOM IN BED ALERT ORIENTED X 4. DENIES SI, HI. NO C/O PAIN OR DISCOMFORT AT THIS TIME. WILL CONTINUE TO MONITOR Q15MIN ROUNDS FOR SAFETY AND BEHAVIOR.
--- NOTE | 2017-10-12 21:00 | NUR ---
ENCOURAGED PT AND SHE CONSUMED SNACKS AND FLUIDS IN TV ROOM.
[2017-10-12 21:20] VITALS: BP 138/75
--- NOTE | 2017-10-12 22:00 | NUR ---
PT REQUESTED AND SUPERVISED USE OF IPAD FOR 30 MINUTES. XANAX 0.25 MG PO PRN GIVEN PER PT REQUEST FOR ANXIETY WITH RELIEF.
[2017-10-13] MEDS: HYDROCODONE/APAP 10/325MG 1 EA TABLET PO PRN ×2 (00:23→08:24)
[2017-10-13 07:12] LABS: CALCIUM, SERUM 8.8 mg/dL (8.5-10.1); CARBON DIOXIDE 30 mmol/L (21-32); CHLORIDE 93 mmol/L (98-107); CREATININE 0.8 mg/dL (0.6-1.3); GLUCOSE 136 mg/dL (74-106); POTASSIUM 4.9 mmol/L (3.5-5.1); SODIUM SERUM 128 mmol/L (136-145); UREA NITROGEN, BLOOD 12 mg/dL (7-18)
--- NOTE | 2017-10-13 07:30 | NUR ---
gps rn initial notes Received patient in bed, awake, sitting at the edge of the bed, on room air and tolerated well. Alert and oriented x 3, verbally responsive and able to make needs known. Will continue to monitor accordingly.
[2017-10-13] MEDS: ALPRAZOLAM 0.25 MG TABLET PO PRN (07:43)
[2017-10-13 08:00] VITALS: BP 159/74
[2017-10-13] MEDS: LOSARTAN POTASSIUM 50 MG TABLET PO SCH (08:18)
[2017-10-13] MEDS: busPIRone 5 MG TABLET PO SCH (08:18)
[2017-10-13] MEDS: FAMOTIDINE (20 MG) 20 MG TABLET PO SCH (08:18)
[2017-10-13] MEDS: ASPIRIN 81 MG TAB.CHEW PO SCH (08:18)
[2017-10-13] MEDS: MULTIVITAMINS,THERAGRAN 1 UDTAB TABLET PO SCH (08:20)
[2017-10-13 09:00] VITALS: BP 159/74
--- NOTE | 2017-10-13 11:00 | NUR ---
GPS NOTES Transferred patient to [facility] and report given to [place]. Patient transferred via ambulatory with front wheel walker accompanied by RUG BACKING STENCILER assigned. No complaint of pain or discomfort noted, on room air and tolerated well. Endorsed to RN receiving to continue care.
--- NOTE | 2017-10-13 11:30 | NUR ---
RN NOTES RECEIVED PT TRANSFER FROM GPS UNIT. PT IS A/OX3. DENIES ANY SOB OR PAIN AT THIS MOMENT. PT DENIES SI, HI, AND ANY THOUGHTS OF HARMING THEMSELF OR THE PEOPLE AROUND THEM. PT CURRENTLY COMPLIANT WITH ALL THERAPIES AND TREATMENTS. BEHAVIOR AND RESPONSE ARE BOTH APPROPRIATE. SAFETY MEASURES IN PLACE, CALL LIGHT WITHIN REACH. WILL CONTINUE TO MONITOR.
--- NOTE | 2017-10-13 13:40 | NUR ---
INITIAL DISCHARGE PLAN: Patient [place] to return [place] to [address] [address] [facility] [address]. SW confirmed with pts daughter Kinza [phone] who stated pt is able top return home when discharged. JULIETTE will help form a safe and proper discharge in collaboration with .
--- NOTE | 2017-10-13 13:42 | NUR ---
DISCHARGE NOTE: Pt will be discharged at 3:00pm via private vehicle home to [address] [facility] [address]. Pts daughter Kinza [phone] will transport pt home and agrees with discharge plan. Pts mood is happy with congruent affect and denies suicidal/homicidal ideations and denies visual/auditory hallucinations. Pt has a follow up appointment with psychologist Ina Rodriguez on Saturday October 14, 2017 at 3:00pm [address] [facility] [facility] [address] [facility] [address]. Patient will schedule a follow-up appointment with Exercise Equipment Specialist Dr. Pal Lomeli [address] [facility] [address] [place], [place] [id number] . The multidisciplinary exitcare form was done, printed, signed, and given to the patient.
--- NOTE | 2017-10-13 15:40 | NUR ---
DISCHARGE NOTE PT DISCHARGED HOME. PT IS STABLE. DENIES PAIN AT THE MOMENT. PT DENIES PRESENCE OF SI OR HI. DISCHARGE PAPERWORK SIGNED COPIED AND PLACED IN CHART. ID BAND REMOVED. PT HAS NO IV ACCESS. NO WOUND DOCUMENTATION TO BE PERFORMED. PRESCRIPTION COPIED AND PLACED IN CHART.PT LEFT HOSPITAL IN PRIVATE VEHICLE WITH DAUGHTER WHEN DISCHARGED HOME.
--- NOTE | 2017-10-15 11:43 | NUR ---
JULIETTE faxed the discharge note to [facility] ([phone]) from [facility] to the fax number: [phone].
== END 2017-10-13 16:00 | disposition home or self-care (01) | DRG 885 ==
LOC: ER 04:22 → GPS 08:35 → GPSOV2 10-13 10:54
PROVIDERS: ADMIT Psychiatry & Neurology Psychosomatic Medicine; ATTEND Psychiatry & Neurology Psychosomatic Medicine
DX: F33.2 Major depressive disorder, recurrent severe without psychotic features (principal); E87.1 Hypo-osmolality and hyponatremia; K50.90 Crohn's disease, unspecified, without complications; R45.851 Suicidal ideations; E11.9 Type 2 diabetes mellitus without complications; F41.1 Generalized anxiety disorder; K21.9 Gastro-esophageal reflux disease without esophagitis; G89.29 Other chronic pain; I10 Essential (primary) hypertension; M48.061 Spinal stenosis, lumbar region without neurogenic claudication; M54.40 Lumbago with sciatica, unspecified side; F41.0 Panic disorder [episodic paroxysmal anxiety]; Z79.82 Long term (current) use of aspirin; Z79.899 Other long term (current) drug therapy; M19.90 Unspecified osteoarthritis, unspecified site; K59.03 Drug induced constipation
CPT/HCPCS: 36415; 80048-TC; 80053-TC; 80061-TC; 80076-TC; 83690-TC; 84443-TC; 85025-TC; 87081-TC; A4606; A6403; J2405; J7040; Z7610

== ENCOUNTER 2017-10-24 20:26 | Emergency (ER) | payer BC, OTHER ==
[~2017-10-24] VITALS: Ht 165.1 cm; Wt 55.3 kg
[~2017-10-24 20:26] MED LIST changes: -ALPR0.255 PO; -CITA20TA19 PO; +EPOE1VIA15 SQ; +HYDR-3980 PO; -METH4TAB17 PO; +MULT-24 PO
[2017-10-24 20:48] VITALS: BP 152/75
[2017-10-24] MEDS ORDERED: ONDANSETRON HCL 4 MG/5 ML SOLUTION PO ONE (21:30)
== END 2017-10-24 21:44 | disposition home or self-care (01) ==
LOC: ER 20:28
DX: B02.9 Zoster without complications (principal); I10 Essential (primary) hypertension; E11.9 Type 2 diabetes mellitus without complications; M54.30 Sciatica, unspecified side; M48.061 Spinal stenosis, lumbar region without neurogenic claudication; F17.200 Nicotine dependence, unspecified, uncomplicated; Z60.2 Problems related to living alone; Z79.82 Long term (current) use of aspirin
CPT/HCPCS: 99283; A4606; Z7610

== ENCOUNTER 2023-02-09 09:57 | Emergency (ER) | payer BC ==
[~2023-02-09] VITALS: Ht 162.6 cm; Wt 59.4 kg
[~2023-02-09 09:57] MED LIST changes: -LOSA50TA21 PO; +LOSA50TA39 PO; +SIMV-46 PO; -SIMV20TA6 PO
[2023-02-09] MEDS ORDERED: MECLIZINE HCL 25 MG TABLET PO ONE (11:00)
[2023-02-09] MEDS ORDERED: MECLIZINE HCL 25 MG TABLET ONE (11:10)
[2023-02-09 11:16] LABS: BASOPHILS # (AUTO) 0.1 K/uL (0.0-0.2); BASOPHILS % (AUTO) 1.1 % (0.0-2.0); EOSINOPHILS # (AUTO) 0.2 K/uL (0.0-0.7); EOSINOPHILS % (AUTO) 4.5 % (0.0-6.0); HEMATOCRIT 33 % (33-45); HEMOGLOBIN 11.2 g/dL (11.5-14.8); LYMPHOCYTES # (AUTO) 1.4 K/uL (0.8-4.8); LYMPHOCYTES % (AUTO) 28.4 % (20.0-44.0); MEAN CORPUSCULAR HEMOGLOBIN 27 PG (26.0-33.0); MEAN CORPUSCULAR HGB CONC 34 g/dl (31.0-36.0); MEAN CORPUSCULAR VOLUME 80 fL (82-100); MONOCYTES # (AUTO) 0.4 K/uL (0.1-1.30); MONOCYTES % (AUTO) 7.1 % (2.0-12.0); NEUTROPHILS # (AUTO) 2.9 K/uL (1.8-8.9); NEUTROPHILS % (AUTO) 58.9 % (43.0-81.0); PLATELET COUNT (AUTO) 196 K/uL (150-450); RED BLOOD CELL COUNT(AUTO) 4.13 MIL/uL (4.0-5.2); RED CELL DISTRIBUTION WIDTH 16.5 % (11.5-15.0)
[2023-02-09 11:23] LABS: CALCIUM, SERUM 8.8 mg/dL (8.5-10.1); CARBON DIOXIDE 27 mmol/L (21-32); CHLORIDE 106 mmol/L (98-107); CREATININE 1.5 mg/dL (0.6-1.3); GLUCOSE 123 mg/dL (74-106); POTASSIUM 4.1 mmol/L (3.5-5.1); SODIUM SERUM 141 mmol/L (136-145); UREA NITROGEN, BLOOD 22 mg/dL (7-18)
[2023-02-09 11:32] LABS: ALANINE AMINOTRANSFERASE 20 U/L (12-78); ALBUMIN 3.2 g/dL (3.4-5.0); ALKALINE PHOSPHATASE 95 U/L (46-116); ASPARTATE AMINOTRANSFERASE 15 U/L (15-37); BILIRUBIN,DIRECT 0.1 mg/dL (0.0-0.2); BILIRUBIN,TOTAL 0.3 mg/dL (0.2-1.0); NT-PRO BNP 911 pg/mL (0-125); TOTAL PROTEIN, SERUM 6.7 g/dL (6.4-8.2)
[2023-02-09] MEDS ORDERED: MECL-159 PO (12:00)
[2023-02-09 12:33] VITALS: BP 102/58; TEMP 98.7; O2SAT 100
== END 2023-02-09 12:33 | disposition home or self-care (01) ==
LOC: ER 10:00
DX: R42 Dizziness and giddiness (principal); I10 Essential (primary) hypertension; E11.9 Type 2 diabetes mellitus without complications; Z60.2 Problems related to living alone; Z79.899 Other long term (current) drug therapy
CPT/HCPCS: 99285; 70450; 71045; 93005; 85025; 80048; 80076; 36415; 84484; 83880; 82962; J8597

== ENCOUNTER 2023-04-27 07:53 | Emergency (ER) | payer BC ==
[~2023-04-27] VITALS: Ht 165.1 cm; Wt 57.2 kg
[~2023-04-27 07:53] MED LIST changes: +MECL-159 PO
[2023-04-27 09:11] VITALS: TEMP 98.5
[2023-04-27 10:51] LABS: BASOPHILS # (AUTO) 0.1 K/uL (0.0-0.2); EOSINOPHILS # (AUTO) 0.3 K/uL (0.0-0.7); EOSINOPHILS % (AUTO) 4.6 % (0.0-6.0); HEMATOCRIT 33 % (33-45); LYMPHOCYTES # (AUTO) 1.3 K/uL (0.8-4.8); LYMPHOCYTES % (AUTO) 20.6 % (20.0-44.0); MEAN CORPUSCULAR HEMOGLOBIN 26 PG (26.0-33.0); MEAN CORPUSCULAR HGB CONC 33 g/dl (31.0-36.0); MEAN CORPUSCULAR VOLUME 79 fL (82-100); MONOCYTES # (AUTO) 0.4 K/uL (0.1-1.30); MONOCYTES % (AUTO) 6.3 % (2.0-12.0); NEUTROPHILS # (AUTO) 4.4 K/uL (1.8-8.9); NEUTROPHILS % (AUTO) 67.5 % (43.0-81.0); PLATELET COUNT (AUTO) 183 K/uL (150-450); RED BLOOD CELL COUNT(AUTO) 4.24 MIL/uL (4.0-5.2); RED CELL DISTRIBUTION WIDTH 16.8 % (11.5-15.0); WHITE BLOOD COUNT (AUTO) 6.5 K/uL (4.3-11.0)
[2023-04-27 10:54] LABS: INR 1.05 (0.91-1.10); PARTIAL THROMBOPLASTIN TIME 28.9 SEC (24.3-34.3); PROTHROMBIN TIME 11.1 SECS (9.2-11.1)
[2023-04-27 10:57] LABS: ALBUMIN 3.4 g/dL (3.4-5.0); BILIRUBIN,TOTAL 0.4 mg/dL (0.2-1.0); CALCIUM, SERUM 9.3 mg/dL (8.5-10.1); CREATININE 1.3 mg/dL (0.6-1.3); POTASSIUM 4.1 mmol/L (3.5-5.1); TOTAL PROTEIN, SERUM 6.8 g/dL (6.4-8.2)
[2023-04-27 11:07] VITALS: BP 145/82; O2SAT 98
== END 2023-04-27 11:08 | disposition home or self-care (01) ==
LOC: ER 08:01
DX: K59.00 Constipation, unspecified (principal); K62.5 Hemorrhage of anus and rectum; I10 Essential (primary) hypertension; E11.9 Type 2 diabetes mellitus without complications; F17.200 Nicotine dependence, unspecified, uncomplicated; Z60.2 Problems related to living alone; Z79.899 Other long term (current) drug therapy
CPT/HCPCS: 36415; 80053-TC; 85025-TC; 85730-TC

== ENCOUNTER 2024-05-18 | Emergency (ER) | payer BC ==
[~2024-05-18] VITALS: Ht 165.1 cm; Wt 54.4 kg
[2024-05-18 00:57] VITALS: BP 171/81; TEMP 98.1; O2SAT 98
== END 2024-05-18 02:10 | disposition left against medical advice (07) ==
LOC: ER 00:02
DX: R52 Pain, unspecified (principal); Z53.21 Procedure and treatment not carried out due to patient leaving prior to being seen by health care provider